=== PATIENT | female | born 2000 | race Caucasian/White ===

== ENCOUNTER 2024-11-05 14:56 | Emergency (ER) | payer OTHER ==
[~2024-11-05] VITALS: Ht 154.9 cm; Wt 67.6 kg
[2024-11-05 15:03] VITALS: BP 117/79; TEMP 97.8; O2SAT 96
[2024-11-05] MEDS ORDERED: RIZA10TA58 PO (15:30)
[2024-11-05] MEDS: IBUPROFEN 600MG TAB PO ONE (18:23)
[2024-11-05] MEDS: methocarbamoL 500 MG TAB PO ONE (18:23)
[2024-11-05] MEDS ORDERED: METH-1164 PO (19:34)
== END 2024-11-05 19:43 | disposition home or self-care (01) ==
LOC: M ED 14:56
DX: M62.831 Muscle spasm of calf (principal); Z88.6 Allergy status to analgesic agent; Z79.899 Other long term (current) drug therapy